=== PATIENT | male | born 1970 | race Caucasian/White ===

== ENCOUNTER 2021-06-07 15:18 | Emergency (ER) | payer OTHER, SELFPAY ==
[2021-06-07 15:40] VITALS: BP 124/90; PULSE 84; RESP 16; TEMP 36.7; O2SAT 99
--- NOTE | 2021-06-07 15:45 | ED.GENADULT ---
HPI - General Adult General Chief complaint: Eye Problems Stated complaint: EYE REDNESS/SWELLING Time Seen by Provider: 06/07/21 15:45 Source: patient Mode of arrival: ambulatory Limitations: no limitations History of Present Illness HPI narrative: 51-year-old male patient presents to the [facility] with complaints of redness around the left eye that started yesterday. Patient states this started when he was out mowing grass into some weeds. Denies any itching to the eye. Patient states he did take some Benadryl last night as well as this morning. Denies any vision changes or blurred vision. Denies any pain around the eye and denies any warmth. Denies any trauma to the eye that he is aware of. Related Data Home Medications Medication Instructions Recorded Confirmed albuterol sulfate [Ventolin HFA] INHALATION 06/07/21 amlodipine 06/07/21 budesonide-formoterol [Symbicort] INHALATION 06/07/21 Allergies Allergy/AdvReac Type Severity Reaction Status Date / Time clarithromycin [From Biaxin] Allergy Rash Verified 06/07/21 15:39 levofloxacin [From Levaquin] Allergy Other Verified 06/07/21 15:39 Penicillins Allergy Other Verified 06/07/21 15:39 Review of Systems Review of Systems: CONSTITUTIONAL: Denies fever, chills, or sweats. EYES: Denies visual changes, redness, or discharge. ENT: Denies rhinorrhea, congestion, sore throat, or otalgia. CARDIOVASCULAR: Denies chest pain, palpitations, or edema. RESPIRATORY: Denies cough or dyspnea. GASTROINTESTINAL: Denies abdominal pain, nausea, vomiting, or diarrhea. GENITOURINARY: Denies dysuria or hematuria. SKIN: Denies rash or itching. Positive redness around left eye since yesterday MUSCULOSKELETAL: Denies back pain, joint pain, or myalgia. NEUROLOGIC: Denies headache, numbness, or weakness. PSYCHIATRIC: Denies anxiety or depression. PMFSH Comments At the time of my signature I agree with nursing past medical history, surgical, social, and family history. There is no relevant family history pertinent to the presenting complaint. Exam Narrative: GENERAL: Well-appearing, well-nourished, and in no acute distress. HEAD: Normocephalic, atraumatic. EYES: PERRLA and EOM intact without limitation or complaint of pain, left periorbital soft tissue swelling with erythema, no warmth or tenderness noted, no obvious deformity. No crusting or swelling.no tearing or draining.No photophobia. No nystagmus No FB or lesion on lid eversion. Corneas grossly clear, no obvious FB or hyphens/hypopyon. No injection to sclera. Lids and lashes clear. ENT: Nares clear, no rhinorrhea or epistaxis. Mucous membranes moist. NECK: Supple. No lymphadenopathy CHEST: Clear to auscultation. No respiratory distress. HEART: Regular rate and rhythm. No murmur heard. Normal peripheral pulses. ABDOMEN: Soft, nontender, nondistended, normal active bowel sounds. EXTREMITIES: Normal range of motion. No edema. SKIN: Warm, dry, no rash. NEURO: No focal deficits. Alert and oriented x3. Course Vital Signs Vital signs: Vital Signs Temperature 36.7 C 06/07/21 15:40 Pulse Rate 84 06/07/21 15:40 Respiratory Rate 16 06/07/21 15:40 Blood Pressure 124/90 06/07/21 15:40 Pulse Oximetry 99 06/07/21 15:40 Temperature 36.7 C 06/07/21 15:40 Pulse Rate 84 06/07/21 15:40 Respiratory Rate 16 06/07/21 15:40 Blood Pressure 124/90 06/07/21 15:40 Pulse Oximetry 99 06/07/21 15:40 Vital signs reviewed The patient has been informed that they may have pre-hypertension or Hypertension based on a BP reading in the department. I recommend that the patient call the primary care provider listed on their discharge instructions or a physician of their choice this week to arrange follow up for further evaluation of possible pre-hypertension or Hypertension Medical Decision Making Differential Diagnosis Differential Diagnosis: Differential diagnosis: Conjunctivitis, foreign body, corneal ulcer, Keratitis, den
== END 2021-06-07 16:06 | disposition home or self-care (01) ==
PROVIDERS: Emergency Provider Nurse Practitioner Family
DX: H01.114 Allergic dermatitis of left upper eyelid (principal); I10 Essential (primary) hypertension; J45.909 Unspecified asthma, uncomplicated
CPT/HCPCS: 99213; G0463

== ENCOUNTER 2021-06-16 16:49 | Emergency (ER) | payer OTHER, SELFPAY ==
[2021-06-16 17:36] VITALS: BP 140/97; PULSE 77; RESP 16; TEMP 36.9; O2SAT 98
[2021-06-16] MEDS: TETANUS,DIPHTHERIA,AC PERTUSSIS ADULT (0.5 ML) BOOSTRIX IM (18:38)
--- NOTE | 2021-06-16 18:52 | ED.WOUNDLAC ---
HPI - Wound/Laceration General Chief Complaint: Wound/Laceration Stated Complaint: L HAND LACERATION Time Seen by Provider: 06/16/21 18:22 Source: patient and RN notes reviewed Mode of arrival: ambulatory Limitations: no limitations History of Present Illness HPI narrative: Patient presents today complaining of a laceration to his left hand that was sustained at 1600 this evening on a metal part of his lawnmower. He is not up-to-date on his tetanus vaccine. Denies numbness or tingling in the other fingers. He is currently pain-free. Related Data Home Medications Medication Instructions Recorded Confirmed albuterol sulfate [Ventolin HFA] INHALATION 06/07/21 amlodipine 06/07/21 budesonide-formoterol [Symbicort] INHALATION 06/07/21 Allergies Allergy/AdvReac Type Severity Reaction Status Date / Time clarithromycin [From Biaxin] Allergy Rash Verified 06/16/21 18:24 levofloxacin [From Levaquin] Allergy Other Verified 06/16/21 18:24 Penicillins Allergy Other Verified 06/16/21 18:24 Review of Systems Review of Systems: CONSTITUTIONAL: Denies body aches, fever, chills, or sweats. EYES: Denies visual changes, redness, or discharge. ENT: Denies rhinorrhea, congestion, sore throat, or otalgia. CARDIOVASCULAR: Denies chest pain, palpitations, or edema. RESPIRATORY: Denies cough or dyspnea. GASTROINTESTINAL: Denies abdominal pain, nausea, vomiting, or diarrhea. GENITOURINARY: Denies dysuria or hematuria. SKIN: Denies rash, itching. + Left hand laceration MUSCULOSKELETAL: Denies back pain, joint pain, or myalgia. NEUROLOGIC: Denies headache, numbness, tingling, or weakness. PSYCH: Denies depression or anxiety. PMFSH Comments At time of signature, I have reviewed and agree with nursing past medical, surgical, social and family history unless otherwise noted. Please see nursing chart for further information. There is no relevant family history pertinent to the presenting complaint Exam Narrative: GENERAL: Well-appearing, well-nourished, and in no acute distress. HEAD: Normocephalic, atraumatic. EYES: EOMI. No redness or drainage. Conjunctivae normal. ENT: Mucous membranes pink and moist. NECK: Normal AROM. . CHEST: No respiratory distress. EXTREMITIES: Normal range of motion. No edema. SKIN: Warm, dry, no rash. Capillary refill normal. Normal skin turgor. 2 cm full-thickness linear laceration to the webbing between the first and second finger of the left hand. No active bleeding. Distal sensation intact. Capillary refill normal. NEURO: No focal deficits. Alert and oriented x3. Gait steady. PSYCH: Normal affect. No signs of depression or anxiety. Course Vital Signs Vital signs: Vital Signs Temperature 98.4 F 06/16/21 17:36 Pulse Rate 77 06/16/21 17:36 Respiratory Rate 16 06/16/21 17:36 Blood Pressure 140/97 H 06/16/21 17:36 Pulse Oximetry 98 06/16/21 17:36 Temperature 98.4 F 06/16/21 17:36 Pulse Rate 77 06/16/21 17:36 Respiratory Rate 16 06/16/21 17:36 Blood Pressure 140/97 H 06/16/21 17:36 Pulse Oximetry 98 06/16/21 17:36 Reviewed. Pt has been instructed to follow up with his PCP regarding his elevated blood pressure today. Procedures Laceration Laceration 1: Date: 06/16/21 Time: 18:54 Site: hand Side (If applicable): left Size (cm): 2 Description: linear Depth: simple, single layer Local Anesthetic: lidocaine 1% Amount of anesthesia used (mL): 3 Pre-repair: wound explored and irrigated ====== Skin Level ====== Skin layer closed with: nylon Size (cm): 5-0 Number of sutures: 4 Technique: simple, interrupted ====== Subcutaneous Layer ====== ====== Muscle Layer ====== ====== Tendon Layer ====== MDM - Wound/Laceration Differential Diagnosis Differential diagnosis: Likely laceration, abrasion and avulsion of skin Critical Care Time Critical C
== END 2021-06-16 19:03 | disposition home or self-care (01) ==
PROVIDERS: Emergency Provider Nurse Practitioner
DX: S61.412A Laceration without foreign body of left hand, initial encounter (principal); W28.XXXA Contact with powered lawn mower, initial encounter; Z23 Encounter for immunization; I10 Essential (primary) hypertension; J45.909 Unspecified asthma, uncomplicated
CPT/HCPCS: 12001; 90471; 90715; 99212; G0463

== ENCOUNTER 2022-03-06 12:48 | Emergency (ER) | payer OTHER, SELFPAY ==
--- NOTE | ~2022-03-06 | XR_ITS ---
XR finger 5th LT min 2V DATE: 03/06/2022 13:48 INDICATION: Laceration, injury TECHNIQUE: 4 views COMPARISON: None FINDINGS: There is a minimally displaced linear fracture through the ulnar aspect of the tuft of the distal phalanx of the fifth digit. No other fracture or dislocation. No radiopaque soft tissue foreign body. IMPRESSION: Tuft fracture of distal phalanx Reviewed, dictated and finalized at location A.
[2022-03-06 12:59] VITALS: BP 178/85; PULSE 115; RESP 20; TEMP 36.1; O2SAT 97
--- NOTE | 2022-03-06 15:03 | ED.WOUNDLAC ---
HPI - Wound/Laceration General Chief Complaint: Extremity Injury, Upper Stated Complaint: right pinky injury Time Seen by Provider: 03/06/22 14:11 Source: patient Mode of arrival: ambulatory Limitations: no limitations History of Present Illness HPI narrative: Patient presents today complaining of laceration to his left fifth finger that was sustained just prior to arrival on an electric brush elisha. Denies pain at this time. Denies numbness or tingling. He is up-to-date on his tetanus vaccine. Related Data Home Medications Medication Instructions Recorded Confirmed albuterol sulfate 90 mcg/actuation 90 mcg inhalation Q6-8H PRN Dyspnea 06/07/21 03/06/22 aerosol inhaler (Ventolin HFA) amlodipine 5 mg tablet 5 mg PO DAILY 06/07/21 03/06/22 budesonide-formoterol HFA 160 160 inh inhalation BID 06/07/21 03/06/22 mcg-4.5 mcg/actuation aerosol inhaler (Symbicort) doxycycline hyclate 100 mg capsule cap 03/06/22 Allergies Allergy/AdvReac Type Severity Reaction Status Date / Time clarithromycin [From Biaxin] Allergy Rash Verified 03/06/22 13:40 levofloxacin [From Levaquin] Allergy Other Verified 03/06/22 13:40 Penicillins Allergy Other Verified 03/06/22 13:40 Review of Systems Review of Systems: CONSTITUTIONAL: Denies body aches, fever, chills, or sweats. EYES: Denies visual changes, redness, or discharge. ENT: Denies rhinorrhea, congestion, sore throat, or otalgia. CARDIOVASCULAR: Denies chest pain, palpitations, or edema. RESPIRATORY: Denies cough or dyspnea. GASTROINTESTINAL: Denies abdominal pain, nausea, vomiting, or diarrhea. GENITOURINARY: Denies dysuria or hematuria. SKIN: Denies rash, itching. + Laceration to left fifth finger MUSCULOSKELETAL: Denies back pain, joint pain, or myalgia. NEUROLOGIC: Denies headache, numbness, tingling, or weakness. PSYCH: Denies depression or anxiety. [facility] Past Medical History Medical History (Updated 03/06/22 @ 16:01 by Viry Martinez, CLIMATE CHANGE ANALYST, ) MRSA (methicillin resistant Staphylococcus aureus) Comments At time of signature, I have reviewed and agree with nursing past medical, surgical, social and family history unless otherwise noted. Please see nursing chart for further information. There is no relevant family history pertinent to the presenting complaint Exam Narrative: GENERAL: Well-appearing, well-nourished, and in no acute distress. HEAD: Normocephalic, atraumatic. EYES: EOMI. No redness or drainage. Conjunctivae normal. ENT: Mucous membranes pink and moist. NECK: Normal AROM. CHEST: No respiratory distress. EXTREMITIES: Left fifth finger: 3 cm full-thickness linear laceration that extends from the volar surface of the fingertip over the distal tip of the finger extending through the fingernail to the cuticle. Distal sensation intact. Capillary refill normal. Full AROM of the finger. SKIN: Warm, dry, no rash. Capillary refill normal. Normal skin turgor. NEURO: No focal deficits. Alert and oriented x3. Gait steady. PSYCH: Normal affect. No signs of depression or anxiety. Course Course Emergency Course: Will repair finger laceration and placed in splint as well as placing on antibiotics. Patient has previous experience with a hand surgeon and will follow-up with same. He will call his PCP tomorrow to set up an appointment with this specialist. Level of Care: Express Care Visit Vital Signs Vital signs: Vital Signs Temperature 97 F L 03/06/22 12:59 Pulse Rate 115 H 03/06/22 12:59 Respiratory Rate 20 03/06/22 12:59 Blood Pressure 178/85 H 03/06/22 12:59 Pulse Oximetry 97 03/06/22 12:59 Temperature 97 F L 03/06/22 12:59 Pulse Rate 115 H 03/06/22 12:59 Respiratory Rate 20 03/06/22 12:59 Blood Pressure 178/85 H 03/06/22 12:59 Pulse Oximetry 97 03/06/22 12:59 Reviewed. Pt has been instructed to follow up with his PCP regarding his elevated blood pressure today. Procedures Laceration Laceration 1:
== END 2022-03-06 15:15 | disposition home or self-care (01) ==
PROVIDERS: Emergency Provider Nurse Practitioner
DX: S62.637B Displaced fracture of distal phalanx of left little finger, initial encounter for open fracture (principal); W29.3XXA Contact with powered garden and outdoor hand tools and machinery, initial encounter; Z86.14 Personal history of Methicillin resistant Staphylococcus aureus infection; I10 Essential (primary) hypertension; J45.909 Unspecified asthma, uncomplicated
CPT/HCPCS: 12002; 29130; 73140; 99213; 99214; G0463